=== PATIENT | female | born 1965 | race African-American/Black ===

== ENCOUNTER 2017-04-14 09:21 | Inpatient (IN) | payer SELFPAY ==
[~2017-04-14] VITALS: Ht 160 cm; Wt 117.0 kg
[~2017-04-14 09:21] MED LIST: ALBUTEROL INHALER; AMLO5TAB4 PO; ASPI-518 PO; COR12 PO; FURO-151 PO; LOSA50TA3 PO; OMEP20CA10 PO; REV20 GT; SPIR25TA PO
[2017-04-14] MEDS ORDERED: ONDANSETRON HCL 4MG/2ML VIAL IV STA (09:54)
[2017-04-14] MEDS ORDERED: KETOROLAC 30MG/ML VIAL IV STA (09:54)
[2017-04-14] MEDS ORDERED: VISCOUS LIDOCAINE 2% 15 ML UDC PO ONE (10:00)
[2017-04-14] MEDS ORDERED: DICYCLOMINE 10 MG/5 ML ORAL SYR PO ONE (10:00)
[2017-04-14] MEDS ORDERED: MAGNESIUM/ALUMINUM HYDROXIDE/SIMETHICONE 30ML UDC PO ONE (10:00)
[2017-04-14 10:31] LABS: BASOPHILS % 1.2 % (0.0-2.0); EOSINOPHILS % 1.1 % (0.0-5.0); HEMATOCRIT. 40.6 % (36.0-48.0); HEMOGLOBIN. 13.2 g/dL (12.0-16.0); LYMPHOCYTES % 49.1 % (20.0-50.0); MEAN CORPUSCULAR HEMOGLOBIN 28.7 pg (28.0-32.0); MEAN CORPUSCULAR VOLUME 88.1 fL (81.0-99.0); MEAN PLATELET VOLUME 10.4 fl (7.4-10.4); MONOCYTES % 7.3 % (2.0-8.0); NEUTROPHILS % 41.3 % (40.0-76.0); PLATELET 221 x1000/uL (130-400); RED BLOOD CELL COUNT 4.61 mill/uL (4.2-5.4); RED CELL DISTRIBUTION WIDTH 15.3 % (11.6-14.6)
[2017-04-14 10:32] LABS: CLARITY URINE CLOUDY (CLEAR); COLOR URINE YELLOW (YELLOW); KETONES URINE NEGATIVE (NEGATIVE); LEUKOCYTE ESTERASE URINE NEGATIVE (NEGATIVE); NITRITE URINE NEGATIVE (NEGATIVE); OCCULT BLOOD URINE NEGATIVE (NEGATIVE); PROTEIN URINE TRACE (NEGATIVE); UROBILINOGEN URINE 0.2 E.U./dL (0.2-1.0)
[2017-04-14 10:37] LABS: INR 1.1; PROTHROMBIN TIME 10.9 sec (9.4-11.6)
[2017-04-14 10:42] LABS: CHLORIDE 104 mEq/L (98-107)
[2017-04-14 10:47] LABS: TROPONIN I 0.05 ng/mL (0.00-0.04)
[2017-04-14] MEDS ORDERED: ENALAPRIL 2.5MG/2ML VIAL 2ML IV ONE (11:30)
[2017-04-14] MEDS ORDERED: FUROSEMIDE 40MG/4ML VIAL IVP ONE (11:30)
[2017-04-14 11:59] LABS: BG BASE EXCESS 1.1 mmol/L (-2.0-2.0); BG CARBOXYHEMOGLOBIN 0.7 % (0.5-1.5); BG HCO3 ACT 28.1 mmol/L (22.0-26.0); BG METHEMOGLOBIN 0.2 % (0.0-1.5); BG OXYHEMOGLOBIN 95.1 % (94.0-97.0); BG PCO2 54.6 mmHg (35.0-45.0); BG PH 7.329 (7.350-7.450); BG PO2 88.2 mmHg (75.0-100.0); BG SAMPLE SITE RIGHT RADIAL; BG TOTAL HEMOGLOBIN 13.3 g/dL (12.0-18.0); BG VENT MODE NASAL CANNULA
[2017-04-14 17:00] VITALS: BP 147/92
[2017-04-14] MEDS ORDERED: IPRATROPIUM/ALBUTEROL 0.5-3(2.5)MG/3ML NEB HHN PRN (17:00)
[2017-04-14] MEDS ORDERED: SIMETHICONE 80MG TABLET CHEW PO PRN (17:00)
[2017-04-14] MEDS ORDERED: HYDROMORPHONE HCL/PF 2MG/ML CPJ IV PRN (17:15)
[2017-04-14] MEDS ORDERED: DOCUSATE SODIUM 100MG CAPSULE PO PRN (17:15)
[2017-04-14] MEDS ORDERED: NA PHOS,M-B/NA PHOS,DI-BA ENEMA 118ML PR PRN (17:15)
[2017-04-14] MEDS ORDERED: MAGNESIUM/ALUMINUM HYDROXIDE/SIMETHICONE 30ML UDC PO PRN (17:15)
[2017-04-14] MEDS ORDERED: ONDANSETRON HCL 4MG/2ML VIAL IV PRN (17:15)
[2017-04-14] MEDS ORDERED: ENOXAPARIN 40MG/0.4ML SYR SUBCUT SCH (17:15)
[2017-04-14] MEDS ORDERED: CLONIDINE 0.1MG TABLET PO PRN (17:15)
[2017-04-14] MEDS ORDERED: DIPHENHYDRAMINE 50MG/ML VIAL IV PRN (17:15)
[2017-04-14] MEDS ORDERED: GUAIFENESIN 200MG/10ML SUGAR FREE UDC PO PRN (17:15)
[2017-04-14] MEDS ORDERED: IPRATROPIUM/ALBUTEROL 0.5-3(2.5)MG/3ML NEB INH PRN (17:15)
[2017-04-14] MEDS ORDERED: LORAZEPAM 0.5MG TABLET PO PRN (17:18)
[2017-04-14] MEDS ORDERED: PROT40 PO (17:41)
[2017-04-14] MEDS ORDERED: PANTOPRAZOLE 40MG DR TABLET PO SCH (17:45)
[2017-04-14] MEDS: CARVEDILOL 12.5MG TABLET PO SCH (18:21)
[2017-04-14 19:10] LABS: CHLORIDE 103 mEq/L (98-107)
[2017-04-14 19:35] VITALS: BP 124/65
[2017-04-14] MEDS: IPRATROPIUM/ALBUTEROL 0.5-3(2.5)MG/3ML NEB HHN SCH (20:10)
[2017-04-14] MEDS: OMEPRAZOLE 20MG CAPSULE EXTENDED RELEASE PO SCH (21:14)
[2017-04-14] MEDS: SILDENAFIL CITRATE 20MG TABLET GT SCH (21:14)
[2017-04-14] MEDS: SPIRONOLACTONE 25MG TABLET PO SCH (21:14)
[2017-04-14] MEDS: LOSARTAN POTASSIUM 50 MG TABLET PO SCH (21:15)
[2017-04-14] MEDS: AMLODIPINE 5MG TABLET PO SCH (21:15)
[2017-04-14] MEDS: ENOXAPARIN 30MG/0.3ML SYR SUBCUT SCH (21:15)
[2017-04-15 00:08] VITALS: BP 97/56
[2017-04-15] MEDS: IPRATROPIUM/ALBUTEROL 0.5-3(2.5)MG/3ML NEB HHN SCH ×3 (00:47→21:16)
[2017-04-15 04:00] VITALS: BP 115/76
[2017-04-15] MEDS: SILDENAFIL CITRATE 20MG TABLET GT SCH ×3 (06:30→22:18)
[2017-04-15] MEDS: OMEPRAZOLE 20MG CAPSULE EXTENDED RELEASE PO SCH (06:30)
[2017-04-15] MEDS: ACETAMINOPHEN 325MG TABLET PO PRN (06:30)
[2017-04-15 08:00] VITALS: BP 121/88
[2017-04-15] MEDS: ENOXAPARIN 30MG/0.3ML SYR SUBCUT SCH (08:51)
[2017-04-15] MEDS: LOSARTAN POTASSIUM 50 MG TABLET PO SCH ×2 (08:51→22:15)
[2017-04-15] MEDS: SPIRONOLACTONE 25MG TABLET PO SCH ×2 (08:52→22:15)
[2017-04-15] MEDS: ASPIRIN 81MG TABLET PO SCH (08:52)
[2017-04-15] MEDS: CARVEDILOL 12.5MG TABLET PO SCH ×2 (08:52→17:34)
[2017-04-15] MEDS: AMLODIPINE 5MG TABLET PO SCH ×3 (08:53→22:16)
[2017-04-15] MEDS ORDERED: FUROSEMIDE 40MG/4ML VIAL IVP SCH (09:00)
[2017-04-15] MEDS ORDERED: ASPIRIN 81MG EC TABLET PO SCH (09:00)
[2017-04-15 11:24] LABS: BASOPHILS % 0.4 % (0.0-2.0); EOSINOPHILS % 1.5 % (0.0-5.0); HEMATOCRIT. 39.2 % (36.0-48.0); HEMOGLOBIN. 12.4 g/dL (12.0-16.0); LYMPHOCYTES % 37.7 % (20.0-50.0); MEAN CORPUSCULAR HEMOGLOBIN 28.1 pg (28.0-32.0); MEAN CORPUSCULAR VOLUME 88.8 fL (81.0-99.0); MEAN PLATELET VOLUME 10.2 fl (7.4-10.4); MONOCYTES % 5.5 % (2.0-8.0); NEUTROPHILS % 54.9 % (40.0-76.0); PLATELET 209 x1000/uL (130-400); RED BLOOD CELL COUNT 4.42 mill/uL (4.2-5.4); RED CELL DISTRIBUTION WIDTH 15.1 % (11.6-14.6)
[2017-04-15] MEDS ORDERED: PANTOPRAZOLE SODIUM 40 MG/VIAL IV NR (11:25)
[2017-04-15 12:00] VITALS: BP 114/72
[2017-04-15 12:16] LABS: CHLORIDE 101 mEq/L (98-107)
[2017-04-15 12:42] LABS: HDL CHOLESTEROL 48 mg/dL (40-59); LDL CHOLESTEROL 82 mg/dL (5-100); TROPONIN I 0.03 ng/mL (0.00-0.04)
[2017-04-15 16:00] VITALS: BP 120/64
[2017-04-15] MEDS: FUROSEMIDE 40MG/4ML VIAL IVP SCH (17:33)
[2017-04-15 20:00] VITALS: BP 137/83
[2017-04-15] MEDS: ENOXAPARIN 40MG/0.4ML SYR SUBCUT SCH (22:17)
[2017-04-16] VITALS: BP 131/64
[2017-04-16] MEDS: IPRATROPIUM/ALBUTEROL 0.5-3(2.5)MG/3ML NEB HHN SCH ×2 (01:49→08:56)
[2017-04-16] MEDS: ACETAMINOPHEN 325MG TABLET PO PRN (03:56)
[2017-04-16 04:00] VITALS: BP 116/59
[2017-04-16] MEDS: SILDENAFIL CITRATE 20MG TABLET GT SCH (06:19)
[2017-04-16] MEDS: FUROSEMIDE 40MG/4ML VIAL IVP SCH (06:33)
[2017-04-16] MEDS: CARVEDILOL 12.5MG TABLET PO SCH (07:50)
[2017-04-16 08:00] VITALS: BP 108/46
[2017-04-16] MEDS: LOSARTAN POTASSIUM 50 MG TABLET PO SCH (08:25)
[2017-04-16] MEDS: AMLODIPINE 5MG TABLET PO SCH (08:25)
[2017-04-16] MEDS ORDERED: PANTOPRAZOLE SODIUM 40 MG/VIAL IV SCH (09:00)
[2017-04-16 09:10] LABS: BASOPHILS % 0.5 % (0.0-2.0); EOSINOPHILS % 1.2 % (0.0-5.0); HEMATOCRIT. 39.9 % (36.0-48.0); HEMOGLOBIN. 12.9 g/dL (12.0-16.0); LYMPHOCYTES % 40.1 % (20.0-50.0); MEAN CORPUSCULAR HEMOGLOBIN 28.7 pg (28.0-32.0); MEAN CORPUSCULAR VOLUME 88.5 fL (81.0-99.0); MEAN PLATELET VOLUME 9.9 fl (7.4-10.4); MONOCYTES % 6.6 % (2.0-8.0); NEUTROPHILS % 51.6 % (40.0-76.0); PLATELET 215 x1000/uL (130-400); RED BLOOD CELL COUNT 4.51 mill/uL (4.2-5.4)
[2017-04-16] MEDS: ENOXAPARIN 40MG/0.4ML SYR SUBCUT SCH (09:14)
[2017-04-16] MEDS: ASPIRIN 81MG TABLET PO SCH (09:15)
[2017-04-16] MEDS: SPIRONOLACTONE 25MG TABLET PO SCH (09:16)
[2017-04-16 09:50] VITALS: BP 108/46
[2017-04-16 10:18] LABS: CHLORIDE 98 mEq/L (98-107)
[2017-04-16 12:00] VITALS: BP 126/73
== END 2017-04-16 12:00 | disposition home or self-care (01) | DRG 133 ==
LOC: ER 09:21 → 6WST 11:40 → ENRESERV 15:33 → 6WST 17:08
PROVIDERS: ADMIT Internal Medicine; ATTEND Internal Medicine
DX: J96.00 Acute respiratory failure, unspecified whether with hypoxia or hypercapnia (principal); I50.23 Acute on chronic systolic (congestive) heart failure; I42.0 Dilated cardiomyopathy; I27.20 Pulmonary hypertension, unspecified; I25.10 Atherosclerotic heart disease of native coronary artery without angina pectoris; I11.0 Hypertensive heart disease with heart failure; K29.70 Gastritis, unspecified, without bleeding; K21.9 Gastro-esophageal reflux disease without esophagitis; J44.9 Chronic obstructive pulmonary disease, unspecified; Z60.2 Problems related to living alone; Z79.899 Other long term (current) drug therapy; Z86.19 Personal history of other infectious and parasitic diseases; Z90.710 Acquired absence of both cervix and uterus; Z98.891 History of uterine scar from previous surgery; Z79.82 Long term (current) use of aspirin; Z88.6 Allergy status to analgesic agent; Z88.8 Allergy status to other drugs, medicaments and biological substances; Z88.2 Allergy status to sulfonamides
CPT/HCPCS: 36415; 36600; 71045; 80048; 80053; 80061; 81003; 81025; 82375; 82805; 83690; 83880; 84439; 84443; 84484; 85025; 85610; 86850; 86900; 93005; 94640; 94664; 96374; 96375; 99285; C9113; J1650; J1885; J1940; J2405; J3490; J7620